=== PATIENT | female | born 1935 | race Caucasian/White ===

== ENCOUNTER → 2016-11-10 | Day surgery (SDC) | payer MEDICARE, OTHER ==
[~2016-11-10] MED LIST: ASPIR 8181 MG PO; CILOSTAZOL50 MG PO; CLARITIN10 MG PO; HYDROXYZINE HCL10 MG PO; IBUPROFEN800 MG PO; MIRTAZAPINE30 MG PO; PROVENTIL HFA6.7 GM INH; SYMBICORT 160-1 INHA INH; SYNTHROID75 MCG PO; TOPROL XL25 MG PO; ZOLOFT100 MG PO
== END | disposition home or self-care (01) ==
LOC: OR 06:51
PROVIDERS: Internal Medicine Gastroenterology
PROC: 0DBK8ZX Excision of Ascending Colon, Via Natural or Artificial Opening Endoscopic, Diagnostic (ICD-10-PCS; 2016-11-10)
PROC: 0DBN8ZZ Excision of Sigmoid Colon, Via Natural or Artificial Opening Endoscopic (ICD-10-PCS; principal; 2016-11-10 08:00)
DX: C18.3 Malignant neoplasm of hepatic flexure (principal); D12.5 Benign neoplasm of sigmoid colon; D12.7 Benign neoplasm of rectosigmoid junction; K57.30 Diverticulosis of large intestine without perforation or abscess without bleeding; K64.0 First degree hemorrhoids; I10 Essential (primary) hypertension; J44.9 Chronic obstructive pulmonary disease, unspecified; D50.0 Iron deficiency anemia secondary to blood loss (chronic); M19.90 Unspecified osteoarthritis, unspecified site; Z87.891 Personal history of nicotine dependence; Z79.82 Long term (current) use of aspirin; Z79.899 Other long term (current) drug therapy
CPT/HCPCS: J7030

== ENCOUNTER → 2020-09-11 | Outpatient (CLI) | payer MEDICARE, OTHER | LOC: LAB 17:19 | DX: R19.7 Diarrhea, unspecified (principal) | CPT/HCPCS: 87449 ==